=== PATIENT | male | born 1955 | race Caucasian/White ===

== ENCOUNTER 2016-12-25 18:38 | Emergency (ER) | payer OTHER ==
[~2016-12-25] VITALS: Ht 172.7 cm; Wt 80.0 kg
[2016-12-25 18:43] VITALS: BP 155/87; PULSE 106; RESP 15; TEMP 98.1; O2SAT 95
--- NOTE | 2016-12-25 18:54 | PD ---
HPI Chief Complaint: head injury Time Seen by Provider: 18:48 Travel History International Travel<30 days: No Contact w/Intl Traveler<30days: No History of Present Illness HPI Patient comes in by EMS under a Peter act by police after having a mechanical fall off of a ladder approximately 5 feet hitting his head and brief loss consciousness. Per paramedics patient was altered initially on their arrival that has since resolved. Patient reports he is on a blood thinner but does not know which one. Patient's only complaint is pain in the back of his head where there is a hematoma. Patient denies any chest pain, shortness of breath, change in vision, vomiting, numbness or tingling anywhere, neck pain, back pain , or loss of bowel or bladder. Patient reports his last tetanus shot was approximately 3-1/2 years ago. [facility]LY [facility] Social History Alcohol Use: Yes Tobacco Use: No Substance Use: No Allergies-Medications (Allergen,Severity, Reaction): Coded Allergies: No Known Allergies (Unverified , 12/25/16) Reported Meds & Prescriptions Reported Meds & Active Scripts Active Active Prescriptions or Reported Medications Unobtainable Review of Systems Except as stated in HPI: all other systems reviewed are Neg Physical Exam Narrative GENERAL: Well-developed, overly nourished, in no acute distress, and non-ill appearing. SKIN: Large hematoma noted left parietal/occipital lobe is tender to palpation. There is dry blood noted but no definitive lacerations seen at this time wound will have to be cleaned and then reevaluated. No visible active bleeding at this time. HEAD: Atraumatic. Normocephalic. EYES: Pupils equal and round. EOMI. No scleral icterus. No injection or drainage. ENT: No nasal bleeding or discharge. Mucous membranes pink and moist. NECK: Trachea midline. No tenderness or crepitus or mid-level cervical spine. Supple. No nuclear rigidity. CARDIOVASCULAR: Regular rate and rhythm. No murmur appreciated. RESPIRATORY: No accessory muscle use. No respiratory distress. Clear to auscultation. Breath sounds equal bilaterally. MUSCULOSKELETAL: No obvious deformities. No clubbing. No cyanosis. No edema. Full range of motion of all 4 extremities. NEUROLOGICAL: Awake and alert. No obvious cranial nerve deficits. Motor grossly within normal limits. Normal speech. PSYCHIATRIC: Appropriate mood and affect; insight and judgment normal. Data Data Last Documented VS Vital Signs Date Time Temp Pulse Resp B/P Pulse Ox O2 Delivery O2 Flow Rate FiO2 12/25/16 18:43 98.1 106 15 155/87 95 12/25/16 18:40 Room Air Orders Complete Blood Count With Diff (12/25/16 18:45) Prothrombin Time / Inr (Pt) (12/25/16 18:45) Act Partial Throm Time (Ptt) (12/25/16 18:45) Iv Access Insert/Monitor (12/25/16 18:45) Ecg Monitoring (12/25/16 18:45) Oximetry (12/25/16 18:45) Ct Brain W/O Iv Contrast(Rout) (12/25/16 ) Ct Cerv Spine W/O Contrast (12/25/16 ) Ice/Cold Pack (12/25/16 18:45) Comprehensive Metabolic Panel (12/25/16 18:57) Psych Screen (12/25/16 18:57) Drug Screen, Random Urine (12/25/16 18:57) Alcohol (Ethanol) (12/25/16 18:57) Salicylates (Aspirin) (12/25/16 18:57) Tylenol (Acetaminophen) (12/25/16 18:57) Lidocai-Epi 1%-1:100,000 Inj (Xylocaine- (12/25/16 21:15) Labs Laboratory Tests Test 12/25/16 12/25/16 18:55 19:30 White Blood Count 7.5 TH/MM3 Red Blood Count 4.68 MIL/MM3 Hemoglobin 14.6 GM/DL Hematocrit 42.8 % Mean Corpuscular Volume 91.6 FL Mean Corpuscular Hemoglobin 31.1 PG Mean Corpuscular Hemoglobin 34.0 % Concent Red Cell Distribution Width 15.2 % Platelet Count 224 TH/MM3 Mean Platelet Volume 8.9 FL Neutrophils (%) (Auto) 65.4 % Lymphocytes (%) (Auto) 22.2 % Monocytes (%) (Auto) 10.5 % Eosinophils (%) (Auto) 1.2 % Basophils (%) (Auto) 0.7 % Neutrophils # (Auto) 4.9 TH/MM3 Lymphocytes # (Auto) 1.7 TH/MM3 Monocytes # (Auto) 0.8 TH/MM3 Eosinophils # (Auto) 0.1 TH/MM3 Basophils # (Auto) 0.1 TH/MM3 CBC Comment DIFF FINAL Differential Comment Prothrombin Time 10.1 SEC Prothromb Time International 0.9 RATIO Ratio Activated Partial 28.1 SEC Thromboplast Time Sodium Level 137 MEQ/L Potassium Level 3.8 MEQ/L Chloride Level 104 MEQ/L Carbon Dioxide Level 20.0 MEQ/L Anion Gap 13 MEQ/L Blood Urea Nitrogen 8 MG/DL Creatinine 0.77 MG/DL Estimat Glomerular Filtration 102 ML/MIN Rate Random Glucose 101 MG/DL Calcium Level 8.0 MG/DL Total Bilirubin 0.7 MG/DL Aspartate Amino Transf 32 U/L (AST/SGOT) Alanine Aminotransferase 50 U/L (ALT/SGPT) Alkaline Phosphatase 70 U/L Total Protein 7.1 GM/DL Albumin 3.9 GM/DL Salicylates Level LESS THAN 1.7 MG/DL Acetaminophen Level LESS THAN 2.0 MCG/ML Ethyl Alcohol Level 248 MG/DL Urine Opiates Screen NEG Urine Barbiturates Screen NEG Urine Amphetamines Screen NEG Urine Benzodiazepines Screen NEG Urine Cocaine Screen NEG Urine Cannabinoids Screen NEG [facility] Medical Decision Making Medical Screen Exam Complete: Yes Emergency Medical Condition: Yes Interpretation(s) CT the head read by the radiologist shows: No acute intracranial abnormalities. Large left parietal scalp hematoma. CT the cervical spine read by the radiologist shows: Moderate degenerative disc disease. No acute bony abnormality. Differential Diagnosis Intracranial hemorrhage, head injury, laceration, hematoma, electrolyte abnormality, other Narrative Course Patient presents with head injury. There was no evidence of cranial or intracranial injury noted on CT of the head and no evidence of fracture or injury to cervical spine on C-spine CT. The patient has been behaving normally and no notable altered mental status. [place] score of 15. The neurologic exam is normal. The patient is awake and aware and motor sensory exams are normal. There is no clinical evidence to support intracranial injury or bleed. The patient suffered laceration to scalp. There was no evidence to suggest foreign bodies. Visual and tactile exams were unremarkable. There was no evidence of neurovascular injury as well. The patient was irrigated with copious sterile normal saline and primary repair was performed. Please see procedure note. The patient was given signs and symptom warnings for infection, such as increasing pain, redness, swelling, associated heat, pus or fever. The patient was given instructions for timely follow up and for removal. The patient agreed with plan of care. Patient was seen and examined. Labs and CT was were obtained and reviewed. Laceration was repaired. Discussed patient with Dr. Helton, who is in agreement with plan of care and disposition. Patient medically cleared for further treatment and evaluation by psych. Final disposition per psych. Procedures Procedure Narrative LACERATION REPAIR LOCATION: Left parietal/occipital lobe LENGTH: Approximately 3 cm in total length NUMBER OF STITCHES/KATHY: 8 [place] REPAIR: Verbal consent was obtained. The area of the laceration was cleaned and prepped. Patient refused lidocaine. The wound was copiously irrigated with 4 L of normal saline and explored without evidence of foreign body, bony involvement, ligament injury, tendon injury, or neurovascular injury. The wound was closed using kathy. This was a single layer repair. A sterile dressing was applied by nurse. The patient was advised to keep the affected area as clean and dry as possible using soap and water. There were no complications. Patient tolerated the procedure well. Diagnosis Primary Impression: Head injury Qualified Code: S09.90XA - Head injury, initial encounter Additional Impressions: Scalp laceration Qualified Code: S01.01XA - Scalp laceration, initial encounter Alcohol intoxication Qualified Code: F10.920 - Alcohol intoxication, uncomplicated Additional Instructions: Keep wound dry and clean as possible using soap and water. Do not soak or submerge wound. Have kathy removed in 5-7 days. Apply ice to affected area to decrease pain and swelling. Scripts Unable to Obtain Active Prescriptions or Reported Meds Condition: Oscar Gomez Dec 25, 2016 18:54
[2016-12-25 19:19] LABS: AUTOMATED NEUTROPHIL # 4.9 TH/MM3 (1.8-7.7); BASOPHIL # 0.1 TH/MM3 (0-0.2); BASOPHIL % 0.7 % (0.0-2.0); EOSINOPHIL # 0.1 TH/MM3 (0-0.4); EOSINOPHIL % 1.2 % (0.0-4.0); HEMATOCRIT 42.8 % (39.0-51.0); HEMO FLAGS DIFF FINAL; LYMPH % 22.2 % (9.0-44.0); LYMPHOCYTE # 1.7 TH/MM3 (1.0-4.8); MEAN CELL VOLUME 91.6 FL (80.0-100.0); MEAN CORPUSCULAR HEMOGLOBIN 31.1 PG (27.0-34.0); MONO % 10.5 % (0.0-8.0); NEUT % 65.4 % (16.0-70.0); PLATELET COUNT 224 TH/MM3 (150-450); RED BLOOD COUNT 4.68 MIL/MM3 (4.50-5.90); RED CELL DISTRIBUTION WIDTH 15.2 % (11.6-17.2); WHITE BLOOD COUNT 7.5 TH/MM3 (4.0-11.0)
[2016-12-25 19:23] LABS: APTT (PATIENT) 28.1 SEC (24.3-30.1); INTERNATIONAL NORMALIZED RATIO 0.9 RATIO; PROTHROMBIN TIME - PATIENT 10.1 SEC (9.8-11.6)
[2016-12-25 19:43] LABS: ACETAMINOPHEN LESS THAN 2.0 MCG/ML (10.0-30.0); ALKALINE PHOSPHATASE 70 U/L (45-117); ALT (GPT) 50 U/L (12-78); TOTAL BILIRUBIN ADULT 0.7 MG/DL (0.2-1.0)
--- NOTE | 2016-12-25 19:43 | RADRPT ---
EXAM DATE/TIME: 12/25/2016 19:14 [facility] COMPARISON: No previous studies available for comparison. INDICATIONS : Trauma, fall backwards. RADIATION DOSE: 37.53 CTDIvol (mGy) MEDICAL HISTORY : None SURGICAL HISTORY : None. ENCOUNTER: Initial ACUITY: 1 day PAIN SCALE: 8/10 LOCATION: posterior head TECHNIQUE: Multiple contiguous axial images were obtained of the head. Using automated exposure control and adj ustment of the mA and/or kV according to patient size, radiation dose was kept as low as reasonably a chievable to obtain optimal diagnostic quality images. FINDINGS: CEREBRUM: The ventricles are normal for age. No evidence of midline shift, mass lesion, hemorrhage or acute in farction. No extra-axial fluid collections are seen. POSTERIOR FOSSA: The cerebellum and brainstem are intact. The 4th ventricle is midline. The cerebellopontine angle i s unremarkable. EXTRACRANIAL: The visualized portion of the orbits is intact. SKULL: The calvaria is intact. No evidence of skull fracture. There is a large left parietal scalp hematoma measuring up to 4 cm in diameter. CONCLUSION: 1. No acute intracranial abnormalities. Large left parietal scalp hematoma. Tree Vivar MD on December 25, 2016 at 19:39 Board Certified Radiologist. This report was verified electronically.
--- NOTE | 2016-12-25 19:49 | RADRPT ---
EXAM DATE/TIME: 12/25/2016 19:14 [facility] COMPARISON: No previous studies available for comparison. INDICATIONS : Trauma, fall backwards. RADIATION DOSE: 25.64 CTDIvol (mGy) MEDICAL HISTORY : None SURGICAL HISTORY : None. ENCOUNTER: Initial ACUITY: 1 day PAIN SCALE: 3/10 LOCATION: neck TECHNIQUE: Volumetric scanning of the cervical spine was performed. Multiplanar reconstructions in the sagittal, coronal and oblique axial planes were performed. Using automated exposure control and adjustment o f the mA and/or kV according to patient size, radiation dose was kept as low as reasonably achievable to obtain optimal diagnostic quality images. FINDINGS: There is moderate degenerative disc disease. No fracture or spondylolisthesis. No prevertebral soft t issue swelling. No significant bony canal stenosis. CONCLUSION: 1. Moderate degenerative disc disease. No acute bony abnormality. Tree Vivar MD on December 25, 2016 at 19:42 Board Certified Radiologist. This report was verified electronically.
[2016-12-25 19:51] LABS: ANION GAP 13 MEQ/L (5-15); AST (GOT) 32 U/L (15-37); BLOOD UREA NITROGEN 8 MG/DL (7-18); CHLORIDE 104 MEQ/L (98-107); GLOMERULAR FILTRATION RATE 102 ML/MIN (>89); POTASSIUM 3.8 MEQ/L (3.5-5.1); SODIUM (NA) 137 MEQ/L (136-145)
[2016-12-25 19:59] LABS: AMPHETAMINE, URINE NEG (NEG); BARBITURATES, URINE NEG (NEG); COCAINE, URINE NEG (NEG)
[2016-12-25] MEDS ORDERED: LIDOCAINE 1%/EPINEPHrine 1:100,000 SOLN 20 ML VIAL INFIL ONE (21:15)
[2016-12-25 22:12] VITALS: BP 128/83; PULSE 83; RESP 18; O2SAT 95
[2016-12-25] MEDS ORDERED: ACETAMINOPHEN 500 MG CPLT PO ONE (22:15)
[2016-12-25 22:45] VITALS: BP 131/76; PULSE 100; RESP 20; TEMP 97.6; O2SAT 95
[2016-12-26 02:21] VITALS: BP 139/70; PULSE 89; RESP 18; O2SAT 95
[2016-12-26] MEDS ORDERED: LORA-474 PO (02:53)
[2016-12-26] MEDS ORDERED: MULTTAB67 PO (02:53)
[2016-12-26] MEDS ORDERED: MELO-1 PO (02:53)
[2016-12-26] MEDS ORDERED: [UNRECOGNIZED DRUG - REMARK] (02:57)
[2016-12-26 06:56] VITALS: BP 162/73; PULSE 95; RESP 18; O2SAT 94
--- NOTE | 2016-12-26 10:36 | PD.CONS ---
Provisional Diagnosis Admission Date [place]. Alcohol intoxication uncomplicated f10.920 History of Present Illness Service Psychiatry Consult Requested By EDMD Reason for Consult Peter act Primary Care Physician Unknown HPI Patient is a 61-year-old white male comes here under Peter act from [facility]'s office dated 12/25/16 at 1834 hrs. with excellent reviewed and agreed with. Stating Jed raymundo fell off a letter today and sustained a laceration to his head. Jed was incoherent and was unable to answer who with the current president was. Medical advice she did not remember falling off a ladder. Jed refused to go to the hospital against the recommendation of paramedics and [facility] Dr. ambrosio. Jed had a lot of blood coming from the back of his head. Jed had nobody present at the residents who could care for him. Jed suffers from PTSD. Patient brought to the [facility] urine toxicology negative blood alcohol level of 248. Patient seen screened in the ED laceration was repaired is medically cleared. Patient seen in his room on J pod with nurse Belinda. Patient is alert oriented white male long shoulderlength somewhat dirty light brown hair and gay he does acknowledge drinking beer and [employer] shoot[employer] yesterday with his friend's birthday. He does not remember falling off a ladder situation surrounding his being brought to the hospital. He denies any prior psychiatric history hospitalization to psychotropic medications. He denies suicidality homicidality voices or visions. He denies any prior detox or rehabilitation though he states he was able times stopped for was initially described as a DUI but reduced to a misdemeanor. At the present time patient does not meet Peter criteria will lift the Peter act as okay by psychiatry for him to be discharge was medically clear and stable. No Rx by me strong recommendation AA strong recommendation voluntary assessment substance-abuse through Mark MarchDekko act Review of Systems Constitutional: DENIES: Diaphoretic episodes, Fatigue, Fever, Weight gain, Weight loss, Chills, Dizziness, Change in appetite, Night Sweats Endocrine: DENIES: Heat/cold intolerance, Polydipsia, Polyuria, Polyphagia Eyes: DENIES: Blurred vision, Diplopia, Eye inflammation, Eye pain, Vision loss , Photosensitivity, Double Vision Ears, nose, mouth, throat: DENIES: Tinnitus, Hearing loss, Vertigo, Nasal discharge, Oral lesions, Throat pain, Hoarseness, Ear Pain, Running Nose, Epistaxis, Sinus Pain, Toothache, Odynophagia Respiratory: DENIES: Apneas, Cough, Snoring, Wheezing, Hemoptysis, Sputum production, Shortness of breath Cardiovascular: DENIES: Chest pain, Palpitations, Syncope, Dyspnea on Exertion , PND, Lower Extremity Edema, Orthopnea, Claudication Gastrointestinal: DENIES: Abdominal pain, Black stools, Bloody stools, Constipation, Diarrhea, Nausea, Vomiting, Difficulty Swallowing, Anorexia Genitourinary: DENIES: Sexual dysfunction, Urinary frequency, Urinary incontinence, Urgency, Hematuria, Dysuria, Nocturia, Penile Discharge, Testicular Pain, Testicular Swelling Musculoskeletal: DENIES: Joint pain, Muscle aches, Stiffness, Joint Swelling, Back pain, Neck pain Integumentary: DENIES: Abnormal pigmentation, Nail changes, Pruritus, Rash Hematologic/lymphatic: DENIES: Bruising, Lymphadenopathy Immunologic/allergic: DENIES: Eczema, Urticaria Neurologic: DENIES: Abnormal gait, Headache, Localized weakness, Paresthesias, Seizures, Speech Problems, Tremor, Poor Balance Psychiatric: DENIES: Anxiety, Confusion, Mood changes, Depression, Hallucinations, Agitation, Suicidal Ideation, Homicidal Ideation, Delusions Past Family Social History Coded Allergies: No Known Allergies (Unverified , 12/25/16) Past Medical History Patient medically cleared ED Reported Medications [Anti-Coagulant] No Conflict Check 12/26/16 Multiple Vitamin 1 Tab1 Tab PO DAILY Ref 0 12/26/16 Lorazepam (Ativan)1 Mg Tab1 Mg PO HS PRN (ANXIETY AND/OR AGITATION) Ref 0 12/26/16 Meloxicam 15 Mg Tab15 Mg PO DAILY #30 TAB Ref 0 12/26/16 Family History Denies mental health and family Social History Patient lives with girlfriend and multiple rescue dogs Patient's Strengths (min. 2) Patient verbal cooperative irritable access healthcare Physical Exam Patient seen screened in ED exam reviewed and agreed with laceration to scalp repaired by ED staff Vital Signs Vital Signs Date Time Temp Pulse Resp B/P Pulse Ox O2 Delivery O2 Flow Rate FiO2 12/26/16 06:56 95 18 162/73 94 12/25/16 22:45 97.6 Room Air Mental Status Examination Alert oriented white male long laparotomy here shoulderlength, with scruffy gay calm cooperative with fair eye contact states minimal memory of events yesterday Appearance Scruffy Speech: Unremarkable Orientation: x3 Thought Process: Logical Thought Content: Unremarkable Language Syriac fair Fund of Knowledge Fair Hallucination Type: None Attention and Concentration: Other (fair) Suicidal Ideation: No Previous Suicide Attempts: No Homicidal Ideation: No Previous Homicide Attempts: No Insight: Poor Judgment: Poor Affect: Other (decreased range and intensity) Mood: Euthymic (somewhat restricted) Motor Activity: Normal gait Assessment & Plan Problem List: (1) Alcohol intoxication ICD Code: F10.929 Assessment & Plan Estimated LOS: days patient does not meet Peter criteria will lift Peter act. She came by psych for discharge when medically clear and stable. No Rx by me. Strong recommendation AA, strong recommendation voluntary substance abuse assessment outpatient Mark Marchman act Discharge Planning See above Request HC Surrog/Guard Advoc?: No Problem Qualifiers (1) Alcohol intoxication: Qualified Code: F10.920 - Alcohol intoxication, uncomplicated Karlo Hurd MD Dec 26, 2016 10:36
== END 2016-12-26 10:46 | disposition home or self-care (01) ==
LOC: NEPJ 18:38
DX: S01.01XA Laceration without foreign body of scalp, initial encounter (principal); S09.90XA Unspecified injury of head, initial encounter; F10.129 Alcohol abuse with intoxication, unspecified; Y90.8 Blood alcohol level of 240 mg/100 ml or more; W11.XXXA Fall on and from ladder, initial encounter; Y93.89 Activity, other specified; Y92.9 Unspecified place or not applicable; Z79.01 Long term (current) use of anticoagulants
CPT/HCPCS: 12002; 70450; 72125; 80053; 80307; 85025; 85610; 85730